=== PATIENT | female | born 1940 ===

== ENCOUNTER 2018-12-13 00:48 | Inpatient (IN) | payer OTHER ==
[2018-12-13] MEDS ORDERED: NS 1,000 ML IV ONE ×3 (00:53→02:35)
--- NOTE | 2018-12-13 00:56 | EDPHY ---
H & P Time Seen by Provider: 12/13/18 00:54 HPI/ROS: HPI CHIEF COMPLAINT: Fever, possible aspiration pneumonia, shortness of breath. HISTORY OF PRESENT ILLNESS: This patient is a 78-year-old female, she arrives by ambulance from [facility], where she resides, she has a history of acute kidney failure, hypoxemia, picks disease, dementia, hypokalemia dysphagia. She is sent here to the emergency room for low oxygen saturation. EMS reports that 85% saturation on 4 L nasal cannula , they have increased her to 6 L nasal cannula and she is 90-92%. On room air here she has 80%. She is also febrile to 102.2 axillary. Reported by EMS that she is at her neurological baseline, which is slow to respond. Apparently she was started on Levaquin at her nursing facility. Past Medical History: Significant medical history for kidney failure, hypoxemia , picks disease, dementia, hypokalemia, dysphagia Past Surgical History: No recent surgical history Social History: Lives at [place]. Family History: Noncontributory ROS REVIEW OF SYSTEMS: Limited due to patient's mental state and clinical condition. Exam Constitutional triage nursing summary reviewed, vital signs reviewed, awake/ alert. O2 sat 80% room air. Febrile to 102.2. Eyes normal conjunctivae and sclera, EOMI, PERRLA. HENT normal inspection, atraumatic, moist mucus membranes, no epistaxis, neck supple/ no meningismus, no raccoon eyes. Respiratory clear to auscultation bilaterally, normal breath sounds, no respiratory distress, no wheezing. Cardiovascular rate normal, regular rhythm, no murmur, no edema, distal pulses normal. Gastrointestinal soft, non-tender, no rebound, no guarding, normal bowel sounds, no distension, no pulsatile mass. Genitourinary no CVA tenderness. Musculoskeletal no midline vertebral tenderness, full range of motion, no calf swelling, no tenderness of extremities, no meningismus, good pulses, neurovascularly intact. Skin pink, warm, & dry, no rash, skin atraumatic. Neurologic responds to painful stimuli. Psychiatric normal mood/affect. Heme/Lymph/Immune no lymphadenopathy. Differential Diagnosis: Includes but is not limited to in a particular order sepsis, bacteremia, pneumonia, UTI, electrolyte disturbance Medical Decision Making: Plan for this patient with low oxygen level and fever x-ray, blood work, blood cultures, lactic acid, gentle IV fluids, urinalysis. Re-evaluation: Patient here in emergency room with hypoxia and fever. Chest x-ray reviewed and appears to be multifocal pneumonia. I have ordered the patient IV vancomycin IV Zosyn. Additionally patient's labs reviewed she is a creatinine 3.3 and BUN is very elevated at 80. Concerning for severe dehydration and acute kidney injury. Plan for broad-spectrum antibiotics Plan for fluid resuscitation. Trend lactic acids. Admit to the hospital. She is not hypotensive. EKG interpretation by me on record in [facility] system. Impression time of EKG 1:27 a.m. Sinus tach 106, no ST elevation. Troponin noted to be 0.04 Elevated lactic acid, 2nd lactic acid pending after [address] scan of the chest ordered without contrast due to hypoxia, reviewed by myself that shows extensive bilateral pneumonia. Plan for broad-spectrum antibiotics including IV vanc IV Zosyn. Plan for DuoNeb breathing treatment Plan for step-down unit admission. Critical Care: Total Critical Care Time Spent Managing this Patient: 65 Minutes. This time was spent Exclusively with this patient. This Care was exclusive of procedures. The Organ System/life at risk was hypoxic respiratory failure, bilateral pneumonia, severe sepsis This Patient was in Critical Condition because hypoxic respiratory failure, bilateral pneumonia, severe sepsis CT scan of the chest without contrast faxed me by direct Radiology this shows multifocal bilateral alveolar consolidation compatible with history of pneumonia other incidental findings please see full report Patient be admitted to the ICU for further medical care of for significant pneumonia, hypoxia, sepsis. She is severely dehydrated. She is receiving IV fluids. Her lactic acid was initially 5.1 repeat 4.6. This is despite 2 L of fluid. She is not hypotensive. 3rd L fluid ordered. Source: Patient, EMS Constitutional: Initial Vital Signs Temperature (C) 39.0 C H 12/13/18 01:00 Heart Rate 114 H 12/13/18 01:00 Respiratory Rate 18 12/13/18 01:00 Blood Pressure 111/55 L 12/13/18 01:00 O2 Sat (%) 80 L 12/13/18 01:00 O2 Delivery Mode Oxymask O2 (L/minute) 5 Allergies/Adverse Reactions: diazepam Allergy (Verified 12/13/18 00:58) Sulfa (Sulfonamide Antibiotics) Allergy (Verified 12/13/18 00:58) Home Medications: Medication Instructions Recorded Acetaminophen [Tylenol 325mg (*)] 650 mg PO Q6 PRN 12/13/18 Albuterol [Proventil Neb] 3 ml IH Q6HRS PRN 12/13/18 Albuterol [Proventil Neb] 3 ml IH QID 12/13/18 Calcium Carbonate/Vitamin D3 1 each PO BID 12/13/18 [Calcium 600 with Vit D Chew Tb] Divalproex ER [Depakote ER 250 MG 250 mg PO DAILY 12/13/18 (*)] Fluticasone Nasal [Flonase Nasal 2 sprays NASAL DAILY 12/13/18 [place] (RX)] Ketoconazole 2% [Nizoral Shampoo 1 dickson TP MOFR 12/13/18 (*)] Loperamide HCl [Imodium 2 mg (*)] 4 mg PO Q6HRS PRN 12/13/18 Melatonin [Melatonin 5 mg] 5 mg PO HS 12/13/18 Metoprolol Tartrate [Lopressor 25 12.5 mg PO BID 12/13/18 mg (*)] Mirtazapine [Remeron] 15 mg PO DAILY 12/13/18 Polyethylene Glycol 3350 [Miralax 17 gm PO DAILY PRN 12/13/18 17 gm (*)] Sennosides/Docusate Sodium 1 each PO BID 12/13/18 [Senna-S Tablet] levOFLOXACIN [levAQUIN (*)] 500 mg PO DAILY 12/13/18 Medical Decision Making - Diagnostics Imaging Results: Imaging Impressions Chest X-Ray 12/13/18 00:53 Impression: Multifocal airspace consolidation (pneumonia versus asymmetric edema). - Data Points Laboratory Results: Laboratory Results 12/13/18 01:15 12/13/18 01:12 Medications Given: Acetaminophen (Tylenol Rectal) 650 mg LA Q4HRS PRN PRN Reason: Pain, Mild/Fever,Can't Take PO Stop: 06/11/19 03:18 Last Admin: 12/13/18 09:49 Dose: 650 mg Sodium Chloride (1/2 Ns) 1,000 mls @ 125 mls/hr IV CONT TODD Stop: 06/11/19 03:29 Last Admin: 12/13/18 12:11 Dose: 1,000 mls Morphine Sulfate (Roxanol Oral Solution) 5 - 40 mg PO Q2HRS PRN PRN Reason: Pain, Severe Stop: 12/23/18 12:39 Last Admin: 12/13/18 16:10 Dose: 10 mg Discontinued Medications Acetaminophen (Tylenol Rectal) 650 mg LA EDNOW ONE Stop: 12/13/18 00:58 Last Admin: 12/13/18 01:35 Dose: 650 mg Albuterol/Ipratropium (Duoneb) 3 ml IH EDNOW ONE Stop: 12/13/18 02:36 Last Admin: 12/13/18 02:35 Dose: 3 ml Heparin Sodium (Porcine) (Heparin Sc Injection) 5,000 unit SC Q8 TODD Stop: 06/11/19 05:59 Last Admin: 12/13/18 06:00 Dose: 5,000 unit Sodium Chloride (Ns) 1,000 mls @ 0 mls/hr IV EDNOW ONE; Wide Open PRN Reason: Protocol Stop: 12/13/18 00:54 Last Admin: 12/13/18 01:22 Dose: 1,000 mls Sodium Chloride (Ns) 1,000 mls @ 0 mls/hr IV ONCE ONE PRN Reason: Wide Open Stop: 12/13/18 01:31 Last Admin: 12/13/18 01:38 Dose: 1,000 mls Vancomycin/Sodium Chloride (Vancomycin 1 Gm (Premix)) 250 mls @ 250 mls/hr IV EDNOW ONE PRN Reason: Protocol Stop: 12/13/18 02:30 Last Admin: 12/13/18 01:43 Dose: 250 mls Sodium Chloride (Ns) 1,000 mls @ 0 mls/hr IV EDNOW ONE; Wide Open PRN Reason: Protocol Stop: 12/13/18 02:36 Last Admin: 12/13/18 02:35 Dose: 1,000 mls Piperacillin/Tazobactam/Dextrose (Zosyn 2.25 Gm (Premix)) 50 mls @ 100 mls/hr IV Q6H TODD PRN Reason: Protocol Stop: 01/12/19 09:59 Last Admin: 12/13/18 11:04 Dose: 50 mls Piperacillin/Tazobactam/Dextrose (Zosyn 2.25 Gm (Premix)) 50 mls @ 100 mls/hr IV EDNOW ONE Stop: 12/13/18 04:14 Last Admin: 12/13/18 04:00 Dose: 50 mls Point of Care Test Results: Chemistry 12/13/18 01:20 POC Troponin I 0.04 ng/mL ng/mL (0.00-0.08) Departure - Departure Disposition: [facility] Inpatient Acute Clinical Impression: Hypoxia Pneumonia Qualifiers: Pneumonia type: due to unspecified organism Laterality: bilateral Lung location : lower lobe of lung Qualified Code(s): J18.1 - Lobar pneumonia, unspecified organism Condition: Critical
[2018-12-13] MEDS ORDERED: ACETAMINOPHEN 650 MG SUPP PR ONE (00:57)
[2018-12-13 01:28] LABS: PLATELET COUNT 163 10^3/uL (150-400)
[2018-12-13] MEDS ORDERED: PIPERACILLIN/TAZO 4.5 GM/DEX 100 ML IV ONE (01:30)
[2018-12-13] MEDS ORDERED: VANCOMYCIN HCL/NORMAL SALINE 250 ML IV ONE (01:31)
[2018-12-13 01:37] LABS: INR 1.55 (0.83-1.16); PROTIME(PATIENT) 17.9 SEC (12.0-15.0)
[2018-12-13] MEDS ORDERED: IPRATROPIUM/ALBUTEROL 3 ML DEYVIAL ONE (02:31)
[2018-12-13] MEDS ORDERED: IPRATROPIUM/ALBUTEROL 3 ML DEYVIAL IH ONE (02:35)
--- NOTE | 2018-12-13 02:55 | PDGENHP ---
History and Physical - Chief Complaint hypoxia - History of Present Illness Source - patient with advanced dementia and she is acutely ill. She is currently nonverbal. EMR was reviewed as well as accompanying paper chart. Case discussed with ED provider. HPI - this is a 78-year-old female with past medical history significant for Pick's disease, dementia, chronic hypoxia dysphagia with aspiration, CKD, hypokalemia who presents emergency department via EMS with fever and hypoxia. On 12/12/2018 patient spiked a temperature to 103 F. At her [facility] patient did undergo a chest x-ray that showed bibasilar opacities. She was started on Levaquin for aspiration pneumonia and received IV fluid up to 2 L. She is given a Tylenol suppository a nebulizer and oxygen supplementation. Review of her paper chart shows that patient is on a pureed texture nectar thickened diet and followed by speech therapy.. In the emergency department patient was noted to be saturating in the 80s on room air. She had a fever to 102. She was altered from her baseline by report. Patient with increased work of breathing and O2 dependence with the OxyMask. History Information - Allergies/Home Medication List Allergies/Adverse Reactions: diazepam Allergy (Verified 12/13/18 00:58) Sulfa (Sulfonamide Antibiotics) Allergy (Verified 12/13/18 00:58) Home Medications: ACETAMINOPHEN 12/13/18 [Last Taken Unknown] Albuterol 12/13/18 [Last Taken Unknown] Depakote 12/13/18 [Last Taken Unknown] Levaquin 12/13/18 [Last Taken Unknown] Melatonin 12/13/18 [Last Taken Unknown] Metoprolol Tartrate 12/13/18 [Last Taken Unknown] Mirtazapine 12/13/18 [Last Taken Unknown] Senna 12/13/18 [Last Taken Unknown] I have personally reviewed and updated: family history, medical history, surgical history - Social History Smoking Status: Unknown if ever smoked Review of Systems Review of Systems: ROS: 10pt was reviewed & negative except for what was stated in HPI & below ( unable to obtain 2/2 patient acute status and currently nonverbal) Physical Exam Physical Exam: Selected Entries 12/13/18 01:00 Blood Pressure Automatic Method Heart Rate 114 H Respiratory 18 Rate O2 Sat (%) 80 L Temperature (C) 39.0 C H Blood Pressure 111/55 L Mean Arterial 73 Pressure (MAP) O2 Delivery Room Air Mode Temperature Axillary Source Temp Pulse Resp BP Pulse Ox 37.9 C 102 H 24 H 122/57 H 93 12/13/18 02:00 12/13/18 02:00 12/13/18 02:00 12/13/18 02:00 12/13/18 02:16 Constitutional: chronically ill appearing, other (mild/moderate acute respiratory distress. oxy mask on. Patient appears acutely ill, nontoxic. ) Eyes: PERRL (decreased reactivity to light bilaterally and symmetric), anicteric sclera, No EOMI (unable to assess as patient cannot follow instructions), No scleral injection Ears, Nose, Mouth, Throat: dry mucous membranes, other (no nasal discharge) Cardiovascular: no murmur, rub, or gallop (limited exam 2/2 coarse breath sounds ), pulses symmetric bilaterally, tachycardia, No edema Peripheral Pulses: 2+: dorsalis-pedis (R), dorsalis-pedis (L) Respiratory: reduced air movement (bibasilar), inspiratory crackles, rhonchi ( bilateral/diffuse L>R), No expiratory wheeze Gastrointestinal: soft, non-tender abdomen, no palpable masses, No guarding, No distension Genitourinary: nichole in urethra (dark cristobal colored clear urine) Skin: warm, other (pallor), No mottled Musculoskeletal: generalized weakness, other (patient lays in bed tremulous/ shaking which does improve after nichole in place. Patient does not move extremities independently. ) Neurologic: other (patient is nonverbal. appears fatigued and closes eyes intermittently. she does open her eyes when called and will look at examiner. ) , No AAOx3, No facial droop Psychiatric: flat affect, other (appears ill. nonverbal.) Lab Data & Imaging Review 12/13/18 01:15 12/13/18 01:12 WBC 7.58 10^3/uL (3.80-9.50) 12/13/18 01:15 RBC 3.67 10^6/uL (4.18-5.33) L 12/13/18 01:15 Hgb 11.0 g/dL (12.6-16.3) L 12/13/18 01:15 Hct 37.9 % (38.0-47.0) L 12/13/18 01:15 MCV 103.3 fL (81.5-99.8) H 12/13/18 01:15 MCH 30.0 pg (27.9-34.1) 12/13/18 01:15 MCHC 29.0 g/dL (32.4-36.7) L 12/13/18 01:15 RDW 15.4 % (11.5-15.2) H 12/13/18 01:15 Plt Count 163 10^3/uL (150-400) 12/13/18 01:15 MPV 11.8 fL (8.7-11.7) H 12/13/18 01:15 Neut % (Auto) Not Reported 12/13/18 01:15 Lymph % (Auto) Not Reported 12/13/18 01:15 [place] % (Auto) Not Reported 12/13/18 01:15 Eos % (Auto) Not Reported 12/13/18 01:15 Baso % (Auto) Not Reported 12/13/18 01:15 Nucleat RBC Rel Count Not Reported 12/13/18 01:15 Absolute Neuts (auto) Not Reported 12/13/18 01:15 Absolute Lymphs (auto) Not Reported 12/13/18 01:15 Absolute Monos (auto) Not Reported 12/13/18 01:15 Absolute Eos (auto) Not Reported 12/13/18 01:15 Absolute Basos (auto) Not Reported 12/13/18 01:15 Absolute Nucleated RBC Not Reported 12/13/18 01:15 Immature Gran % Not Reported 12/13/18 01:15 Seg Neutrophils % 55.6 % 12/13/18 01:15 Band Neutrophils % 6.1 % 12/13/18 01:15 Lymphocytes % 22.2 % 12/13/18 01:15 Monocytes % 9.1 % 12/13/18 01:15 Eosinophils % 1.0 % 12/13/18 01:15 Basophils % 0.0 % 12/13/18 01:15 Metamyelocytes % 5.0 % 12/13/18 01:15 Myelocytes % 1.0 % 12/13/18 01:15 Promyelocytes % 0.0 % 12/13/18 01:15 Blast Cells % 0.0 % 12/13/18 01:15 Immature Gran # Not Reported 12/13/18 01:15 Absolute Seg Neuts 4.21 10^3/uL (1.70-6.50) 12/13/18 01:15 Absolute Band Neuts 0.46 10^3/uL (0.00-0.70) 12/13/18 01:15 Absolute Lymphocytes 1.68 10^3/uL (1.00-3.00) 12/13/18 01:15 Absolute Monocytes 0.69 10^3/uL (0.30-0.80) 12/13/18 01:15 Absolute Eosinophils 0.08 10^3/uL (0.03-0.40) 12/13/18 01:15 Absolute Basophils 0.00 10^3/uL (0.02-0.10) L 12/13/18 01:15 Absolute Metamyelocyte 0.38 10^3/mL (0.00-0.00) H 12/13/18 01:15 Absolute Myelocytes 0.08 10^3/mL (0.00-0.00) H 12/13/18 01:15 Absolute Promyelocytes 0.00 10^3/uL (0.00-0.00) 12/13/18 01:15 Absolute Plasma Cells 0.00 10^3/uL (0.00-0.00) 12/13/18 01:15 Nucleated RBCs 5.1 /100 WBC (0-0) H 12/13/18 01:15 Absolute Blast Cells 0.00 10^3/uL (0.00-0.00) 12/13/18 01:15 Plasma Cells % 0.0 % 12/13/18 01:15 Platelet Estimate ADEQUATE (ADEQ) 12/13/18 01:15 Polychromasia 1+ H 12/13/18 01:15 Oval Macrocytes 1+ H 12/13/18 01:15 PT 17.9 SEC (12.0-15.0) H 12/13/18 01:12 INR 1.55 (0.83-1.16) H 12/13/18 01:12 APTT 26.7 SEC (23.0-38.0) 12/13/18 01:12 VBG Lactic Acid 4.6 mmol/L (0.7-2.1) H 12/13/18 02:30 Sodium 154 mEq/L (135-145) H 12/13/18 01:12 Potassium 4.3 mEq/L (3.5-5.2) 12/13/18 01:12 Chloride 119 mEq/L (97-110) H 12/13/18 01:12 Carbon Dioxide 24 mEq/l (22-31) 12/13/18 01:12 Anion Gap 11 mEq/L (6-14) 12/13/18 01:12 BUN 84 mg/dL (7-23) H 12/13/18 01:12 Creatinine 3.3 mg/dL (0.6-1.0) H 12/13/18 01:12 Estimated GFR 14 12/13/18 01:12 Glucose 157 mg/dL (70-100) H 12/13/18 01:12 Calcium 8.6 mg/dL (8.5-10.4) 12/13/18 01:12 Magnesium 2.5 mg/dL (1.6-2.3) H 12/13/18 01:12 Total Bilirubin 0.9 mg/dL (0.1-1.4) 12/13/18 01:12 Conjugated Bilirubin 0.6 mg/dL (0.0-0.5) H 12/13/18 01:12 Unconjugated Bilirubin 0.3 mg/dL (0.0-1.1) 12/13/18 01:12 AST 46 IU/L (14-46) 12/13/18 01:12 ALT 42 IU/L (9-52) 12/13/18 01:12 Alkaline Phosphatase 116 IU/L (38-126) 12/13/18 01:12 POC Troponin I 0.04 ng/mL (0.00-0.08) 12/13/18 01:20 NT-Pro-B Natriuret Pep 1460 pg/mL (0-450) H 12/13/18 01:12 Total Protein 6.0 g/dL (6.3-8.2) L 12/13/18 01:12 Albumin 3.0 g/dL (3.5-5.0) L 12/13/18 01:12 [place] labs on from 12/12/2018 WBC 11.40, HH 13/40, plt 274 Na144, K 4.6, cl 108, co2 25, gluc 132, bun 53, cr 1.2 ca 9.4, t bili 0.5 alb 3.9, alt 38/ast 25, AP 93, Imaging Review: Chest x-ray report from [facility] 12/12/18 showing bibasilar airspace opacities. Pulmonary vasculature within normal limits. Diffusely increased lung markings. CT chest without contrast preliminary report reviewed some direct Radiology. Final report pending. On multifocal bilateral alveolar consolidation bowel with history pneumonia. Intrathoracic lymphadenopathy likely reactive to above. Low density hepatic lesions and determinate. Mild cardiomegaly. No pulmonary edema. Assessment & Plan Assessment: this is a 78-year-old female with past medical history significant for Pick's disease, dementia, chronic hypoxia dysphagia with aspiration, CKD, hypokalemia who presents emergency department via EMS with fever and hypoxia. Acute hypoxic respiratory failure - patient with history of dysphagia suspect aspiration pneumonia. She has received Levaquin 1 dose yesterday at her nursing facility. Escalation of antibiotics including Zosyn and vancomycin received in the emergency department. Plan to continue Zosyn. No listed history of MRSA. Aspiration Pneumonia (Acute) - patient remained NPO at this time. She has known history of dysphagia and is on a pureed and nectar thickened liquid diet. Severe sepsis - patient qualifies with tachycardia, tachypnea, elevated lactate in setting of bilateral pneumonia. Patient received IV fluid bolus in the emergency department. Repeat serial lactates until normal. Blood cultures obtained. ARF - likely pre renal in setting severe sepsis. avoid nephrotoxic medications. Continue with IV fluids. hypernatremia - patient does appear quite dehydrated. She received a bolus of normal saline in the emergency department. Will change to half-normal saline. It is unclear how much of her I have the fluid order from yesterday she received at her facility based on available records but Na yesterday was 146. serial BMPs until Na declines. hyperglycemia - no history of diabetes. Likely stress response. Continue monitor. Patient will be NPO. elevated btnp - patient is mildly tachycardic and without any hypotension. She does not appear overloaded at this point is unclear why her BNP is elevated. No listed history of CHF. hypoalbuminemia - likely decreased in setting of acute illness. Unclear if there is a component of chronic disease as well since we have no available previous records.. pyuria - UA showing pyuria. Culture will be obtained. Continue antibiotics as above. Anemia - patient without any evidence of active bleeding. She has received IV fluids. Suspect either component of iron deficiency or anemia of chronic disease. Monitor H&H. chronic medical issues Pick's disease/dementia - patient currently nonverbal but she now opens her eyes to physical and verbal stim. Baseline is unknown at this time. FEN - continue with IV fluids half-normal saline. Electrolyte monitoring replacement if needed. NPO status until patient's mentation improves. PPX-SCDs. Heparin. Cor status-limited per most form. Is amenable to intubation and cardioversion as needed. She does not want any CPR. Dispo - patient admitted inpatient status in ICU. She is acutely ill with high risk for morbidity and mortality.
[2018-12-13] MEDS ORDERED: ALBUTEROL 3 ML DEYVIAL IH PRN (03:19)
[2018-12-13] MEDS ORDERED: ONDANSETRON 4 MG/2 ML VIAL IVP PRN (03:19)
[2018-12-13] MEDS ORDERED: ONDANSETRON DISINTEGRATING 4 MG TAB PO PRN (03:19)
[2018-12-13] MEDS ORDERED: ACETAMINOPHEN 650 MG SUPP PR PRN (03:19)
[2018-12-13] MEDS ORDERED: ACETAMINOPHEN 325 MG TAB PO PRN (03:19)
[2018-12-13] MEDS ORDERED: PIPERACILLIN/TAZO 2.25 GM/DEX 50 ML IV ONE (03:45)
[2018-12-13] MEDS: 1/2 NS 1,000 ML IV SCH ×2 (04:01→12:11)
[2018-12-13] MEDS ORDERED: HEPARIN 5,000 UNIT/0.5 ML INJ SC SCH (06:00)
--- NOTE | 2018-12-13 07:46 | CPEKG ---
Test Reason : OPEN Blood Pressure : / mmHG Vent. Rate : 106 BPM Atrial Rate : 106 BPM P-R Int : 126 ms QRS Dur : 078 ms QT Int : 363 ms P-R-T Axes : 044 017 -19 degrees QTc Int : 483 ms Sinus tachycardia Borderline T wave abnormalities Confirmed by Murtaza Howard ([id number]) on 12/13/2018 7:45:54 AM Referred By: Murtaza Howard Confirmed By:Murtaza Howard
--- NOTE | 2018-12-13 08:19 | PDMN ---
Medical Necessity Medical necessity: Pt meets inpt criteria per MD order and MCG [id number], Pneumonia Due to Aspiration, 3 days. 78 y/o w/hx Picks disease and dementia admitted w/ AHRF due to bilateral pneumonia likely due to aspiration as pt has hx of dysphagia, severe sepsis as evidenced by tachycardia, tachypnea, febrile, elev lactate. ARF (BUN/creat 84, 3.3), hypernatremia (Na 154), pyuria- cultures pending, hypoalbunemia, elev BNP. RA sats in 80's upon admit and currently requiring 8L O2 via oxymask, ICU care, anticipate>2MN for acutely ill pt w/high risk for morbidity and mortality.
--- NOTE | 2018-12-13 09:58 | ASMTCASEMG ---
Living Arrangements What is your living Answers: With Other (Not Family) arrangement? Who do you live with? Type Of Residence What kind of residence do Answers: Custodial Facility you live in? Type of Residence Facility Name Notes: [facility] [place] Discharge Plan Comments Coordination Status Comments Notes: Patient is a 78yo female with a past hx of Pick's Disease, chronic hypoxia dysphagia with aspiration, CKD, hypokalemia who presents with fever and hypoxia. Patient is being admitted for acute hypoxic respiratory failure, aspiration pneumonia, severe sepsis and ARF. PT/TOWEL SORTER have been ordered for the patient. Patient will most likely return to [facility] for her needs at D/C. CM will follow. Date Signed: 12/13/2018 09:57 AM Electronically Signed By:Graciela Robles LCSW
[2018-12-13] MEDS ORDERED: PIPERACILLIN/TAZO 2.25 GM/DEX 50 ML IV SCH (10:00)
--- NOTE | 2018-12-13 11:01 | GCON ---
[f rep st] CONSULTATION [facility] CONSULTATION REFERRING PHYSICIAN: Alida Damon MD REASON FOR REQUEST: Aspiration pneumonia. HISTORY OF PRESENT ILLNESS: I was asked to see patient by Dr. Alida Damon. The patient is an unfor tunate 78-year-old white female with a past medical history, including Pick disease, as well as Pick dementia, chronic hypoxemia, and dysphagia. She was brought in from [facility] with a high temperature. Chest x-ray revealed bibasilar opacifications. She was given Levaquin. This h as been modified. She was admitted to intensive care unit. Patient is completely nonverbal at this point, but not terribly hypoxemic. All history is gleaned from the medical record. REVIEW OF SYSTEMS: Ten-point review of systems was unable to be performed, secondary to altered ment al status. FAMILY HISTORY: Noncontributory. ALLERGIES: To diazepam and sulfa. MEDICATIONS: At home, include senna, mirtazapine, metoprolol, melatonin, Levaquin, Depakote, albuter ol, Tylenol. SOCIAL HISTORY: Unknown. PHYSICAL EXAM: VITAL SIGNS: Blood pressure 115/51, pulse 98, respirations are 36, temperature is 38 .5, oxygen saturation is 90% on 10 L. GENERAL: She is a well-developed 78-year-old female who is so mnolent and unarousable. HEENT: Eyes are [place], EOMI. Throat exam is deferred. NECK: Supple. The re is no cervical adenopathy. HEART: Regular rate and rhythm without murmurs, rubs, gallops. LUNGS : Diminished breath sounds, bibasilar crackles. There is no wheeze. ABDOMEN: Soft, nontender. Jesus wel sounds are present in all 4 quadrants. EXTREMITIES: Show 1+ lower extremity edema. LABORATORY/IMAGING: White count 7.5, hemoglobin hematocrit 37, platelet count 163. INR is 1.55. So dium 153, potassium 3.9, chloride 125, CO2 is 19, BUN 70, creatinine 2.5, glucose is 124. Urinalysis : pH 5, specific gravity 1.021, 50 to 100 WBCs, 25 to 50 RBCs. Arterial blood gas: pH 7.38, pCO2 o f 29, pO2 59, bicarb 17, oxygen saturation 86%, this is on [address] scan of the chest reveals bibasilar pneumonia. There is bilateral pulmonary nodules, as well as g round-glass opacification is also evidence of fatty liver. IMPRESSION: 1. Pick disease with Pick dementia. 2. Severe dementia. 3. Aspiration pneumonia. 4. Hypoxemic respiratory failure, secondary to above. 5. Macrocytic anemia. 6. Coagulopathy of unknown etiology. 7. Hypernatremia. 8. Acute renal failure, appears to be prerenal. RECOMMENDATIONS: 1. Aggressive fluid hydration. 2. Agree with current antibiotic coverage. 3. Wean FiO2 as tolerated. 4. DVT and PE prophylaxis. 5. Stress ulcer prophylaxis. 6. Continue her home medications. 7. The patient is a limited . 8. We will attempt to ascertain patient's POA. /[id number]/MODL
[2018-12-13] MEDS ORDERED: HALOPERIDOL LACT 5 MG/ML INJ IVP PRN (12:40)
[2018-12-13] MEDS ORDERED: GLYCOPYRROLATE 0.2 MG/1 ML VIAL IVP/IM PRN (12:40)
[2018-12-13] MEDS ORDERED: LORazepam 2 MG/ML INJ IVP PRN (12:40)
--- NOTE | 2018-12-13 12:42 | HOSPPROG ---
Hospitalist Progress Note Assessment/Plan: 78yo F with advanced dementia (nonverbal, unable to care for self) presents from [facility] with fevers and hypoxemia found to have aspiration pneumonia and severe sepsis. #AHRF: Due to ongoing aspiration. On 15L oxymask. - D/w MDPOA (Robert, pt's nephew). She has been declining steadily. Decision to proceed with comfort measures and hospice. Orders placed. 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 Likely back to [place] with hospice services , possibly today. Subjective: Nonverbal. On high flow oxygen. Objective: Vital Signs Temp Pulse Resp BP Pulse Ox 37.5 C 91 29 H 102/51 L 91 L 12/13/18 12:00 12/13/18 12:00 12/13/18 12:00 12/13/18 12:00 12/13/18 12:00 Laboratory Results 12/13/18 06:25 12/12/18 12/13/18 12/14/18 05:59 05:59 05:59 Intake Total 2463 Output Total 420 Balance 2043 PT 17.9 SEC (12.0-15.0) H 12/13/18 01:12 INR 1.55 (0.83-1.16) H 12/13/18 01:12 - Physical Exam Constitutional: chronically ill appearing, other (unresponsive) Eyes: PERRL Ears, Nose, Mouth, Throat: dry mucous membranes Cardiovascular: regular rate and rhythym, no murmur, rub, or gallop, No edema Respiratory: respiratory distress, rhonchi Gastrointestinal: normoactive bowel sounds, soft, non-tender abdomen, no palpable masses Genitourinary: nichole in urethra Skin: no rashes or abrasions, no fluctuance, no induration Psychiatric: encephalopathic ICD10 Worksheet Patient Problems: Problems Problem Status Onset Hypoxia Acute Pneumonia Acute
[2018-12-13] MEDS: morphINE 10 MG/0.5 ML UDSYR PO PRN ×2 (13:23→16:10)
--- NOTE | 2018-12-13 16:07 | ASMTCMCOM ---
MARILU Note CM Note Notes: Dr. Rebollar spoke with patient's MDPOA, Robert Evans ([phone]) and he is in agreement with hospice for the patient. [place] [facility] and MARILU spoke with Robert who was in agreement with this referral. Referral was sent to [facility] along with the hospice order. Patient will be ready for d/c back to [place] tomorrow. CM will follow. Date Signed: 12/13/2018 04:07 PM Electronically Signed By:Graciela Robles LCSW
[2018-12-14] MEDS: morphINE 10 MG/0.5 ML UDSYR PO PRN ×2 (05:58→08:53)
[2018-12-14 07:49] VITALS: BP 94/60
[2018-12-14] MEDS ORDERED: ACETAMINOPHEN 325 MG TAB PO PRN (11:35)
[2018-12-14] MEDS ORDERED: POLYETHYLENE GLYCOL 3350 17 GM PKT PO PRN (11:35)
[2018-12-14] MEDS ORDERED: ALBUTEROL 3 ML DEYVIAL IH PRN (11:35)
[2018-12-14] MEDS ORDERED: LOPERAMIDE HCL 2 MG CAP PO PRN (11:35)
--- NOTE | 2018-12-14 11:40 | PDDCSUM ---
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 Acute hypoxemic respiratory failure 2. Aspiration pneumonia 3. 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 Severe sepsis 5. Acute kidney injury 6. Hypernatremia 7. Pyuria 8. Anemia Brief Hospital Course: 78yo F with advanced dementia (nonverbal at baseline, unable to care for self) presented from [facility] with fevers and hypoxemia found to have aspiration pneumonia and severe sepsis. She was started on antibiotics and supplemental oxygen. CT of her chest showed multifocal opacities consistent with aspiration. She was initially admitted to the ICU given her high oxygen requirements. Discussion was had with her MDPOA (Robert carrillo). Ultimately, decision was made to pursue hospice and comfort care given her poor quality of life. She has been made DNR/DNI. Her antibiotics were stopped. She was discharged back to [facility] with hospice services in place. She will have morphine for air hunger. She can use supplemental oxygen for comfort. I suspect she has days- weeks at best to live. Medications: Please refer to EMR for complete list. I have discontinued all her medications except we added Roxanol PRN for air hunger/respiratory distress. Follow Up Plan: Now on hospice and comfort care. Physical Exam: Opens eyes but no purposeful movements. Tachycardic. Rhonchi diffusely throughout lungs. No respiratory distress. Abdomen soft and nontender. Villegas in place. No leg edema.
--- NOTE | 2018-12-14 11:40 | PDIAF ---
- Diagnosis Diagnosis: Back to [facility]. Comfort care only. Code Status: Do Not Resuscitate - Medication Management Discharge Medications: electronically signed and located in the Home Medication List. PICC Care - Routine: N/A - Orders Villegas: Yes Additional Instructions: Now on comfort care. Use Roxanol for air hunger/respiratory distress. Ok to continue bowel regimen as needed to avoid excessive constipation or diarrhea for comfort. Otherwise, we have discontinued her other medications. Can use supplemental oxgyen for comfort. - Follow Up Care Current Providers and Referrals: Patient,NotPresent [Unknown] - As per Instructions
--- NOTE | 2018-12-14 12:18 | ASMTLACE ---
LACE Length of stay for Answers: 1 day current admission Acuity / Level of Answers: Yes Care: Did the patient have an inpatient admission? Comorbidities - select Answers: Dementia all that apply Other Notes: Hypoxia # of Emergency department Answers: 1-2 visits in the last 6 months Score: 9 Date Signed: 12/14/2018 12:18 PM Electronically Signed By:MARCO Choudhary
--- NOTE | 2018-12-14 12:21 | ASDISCHSUM ---
Discharge Information Plan Status:SNF Medically Cleared to Leave:12/14/2018 Discharge Date:12/14/2018 CM D/C Disposition:Snf Facility ADT D/C Disposition:Snf Facility Projected Discharge Date:12/14/2018 11:00 AM Transportation at D/C:ALS/BLS Discharge Delay Reason: Follow-Up Date:12/14/2018 11:00 AM Discharge Slot: Final Diagnosis: Placement Information Referral Type:*Hospice Referral ID:[id number] Provider Name:[facility] Address 1:[address] Home Phone Number: Address 2: Fax Number: [facility]:[place] Selection Factors: State:[place] Referral Type:*Longterm/SNF Referral ID:[id number] Provider Name:[facility] [employer] Address 1:[address] Address 2: City:[place] Selection Factors: State:[place] Patient Contact Information Contact Name:OVI Relationship:Other Address:[address] [place] [address] City:[place] Alternate Phone: State/Zip Code:[place] [address] Email: Financial Information Financial Class:Medicare Advantage Plans Primary Plan Desc:[place] Primary Plan Number:[id number] Secondary Plan Desc: Secondary Plan Number: Assessment Information LACE LACE Length of stay for Answers: 1 day current admission Acuity / Level of Answers: Yes Care: Did the patient have an inpatient admission? Comorbidities - select Answers: Dementia all that apply Other Notes: Hypoxia # of Emergency department Answers: 1-2 visits in the last 6 months Score: 9 Date Signed: 12/14/2018 12:18 PM Electronically Signed By:MARCO Choudhary [facility] Initial CM Assessment Living Arrangements What is your living Answers: With Other (Not Family) arrangement? Who do you live with? Type Of Residence What kind of residence do Answers: Snf Facility you live in? Type of Residence [facility] Name Notes: [facility] Discharge Plan Comments Coordination Status Comments Notes: Patient is a 78yo female with a past hx of Pick's Disease, chronic hypoxia dysphagia with aspiration, CKD, hypokalemia who presents with fever and hypoxia. Patient is being admitted for acute hypoxic respiratory failure, aspiration pneumonia, severe sepsis and ARF. PT/PAN DEVULCANIZER have been ordered for the patient. Patient will most likely return to [place] for her needs at D/C. CM will follow. Date Signed: 12/13/2018 09:57 AM Electronically Signed By:Graciela Robles LCSW [facility] CM Progress Note CM Note CM Note Notes: Dr. Rebollar spoke with patient's MDPOA, Robert Evans ([phone]) and he is in agreement with hospice for the patient. [facility] contract with [facility] and MARILU spoke with Robert who was in agreement with this referral. Referral was sent to [facility] along with the hospice order. Patient will be ready for d/c back to [place] tomorrow. CM will follow. Date Signed: 12/13/2018 04:07 PM Electronically Signed By:Graciela Robles LCSW Intervention Information
[2018-12-14] MEDS ORDERED: SENNOSIDES/DOCUSATE SODIUM TAB PO SCH (21:00)
== END 2018-12-14 13:00 | DRG 871 ==
LOC: F2N 03:29 → F3E 17:49
PROVIDERS: ADMIT Family Medicine; ATTEND Family Medicine
DX: A41.9 Sepsis, unspecified organism (principal); J69.0 Pneumonitis due to inhalation of food and vomit; J96.01 Acute respiratory failure with hypoxia; N17.9 Acute kidney failure, unspecified; E87.0 Hyperosmolality and hypernatremia; N39.0 Urinary tract infection, site not specified; Z51.5 Encounter for palliative care; Z66 Do not resuscitate; G31.01 Pick's disease; F02.80 Dementia in other diseases classified elsewhere, unspecified severity, without behavioral disturbance, psychotic disturbance, mood disturbance, and anxiety; E86.9 Volume depletion, unspecified; R65.20 Severe sepsis without septic shock; D64.9 Anemia, unspecified; N18.9 Chronic kidney disease, unspecified
CPT/HCPCS: 84484-ER; 96365; J1644; J2543; J3370